=== PATIENT | male | born 1990 | race African-American/Black ===

== ENCOUNTER 2017-09-20 09:57 | Emergency (ER) | payer OTHER ==
[~2017-09-20] VITALS: Ht 175.3 cm; Wt 118.2 kg
[~2017-09-20 09:57] MED LIST: NAPROSYN500 MG PO; NORCO 5/3251 TABLET PO; ZITHROMAX Z-PA250 MG PO
[2017-09-20] MEDS ORDERED: NAPROSYN500 MG PO (11:03)
[2017-09-20] MEDS ORDERED: ULTRAM50 MG PO (11:03)
[2017-09-20 11:19] VITALS: BP 100/61
== END 2017-09-20 11:19 | disposition home or self-care (01) ==
LOC: EME 09:57
DX: S83.91XA Sprain of unspecified site of right knee, initial encounter (principal); W18.30XA Fall on same level, unspecified, initial encounter; Y93.61 Activity, american tackle football; Z88.0 Allergy status to penicillin
CPT/HCPCS: 73564; 99281; 99284